=== PATIENT | female | born 1965 | race Two or more races ===

== ENCOUNTER 2022-04-24 11:01 | Emergency (ER) | payer OTHER ==
[~2022-04-24] VITALS: Ht 160 cm; Wt 95.3 kg
[2022-04-24] MEDS ORDERED: MONTELUKAST SOD10 MG PO (11:34)
[2022-04-24] MEDS ORDERED: LOSARTAN POTAS100 MG PO (11:34)
[2022-04-24] MEDS ORDERED: VALSARTAN320 MG PO (11:34)
[2022-04-24] MEDS ORDERED: ATORVASTATIN CA20 MG PO (11:34)
[2022-04-24] MEDS ORDERED: BUPROPION HCL150 M1 PO (11:34)
[2022-04-24] MEDS ORDERED: METFORMIN HCL500 M4 PO (11:34)
[2022-04-24] MEDS ORDERED: TRIUMEQ TABLET1 EACH PO (11:34)
[2022-04-24] MEDS ORDERED: KETO10TA2 PO (14:52)
== END 2022-04-24 17:06 | disposition home or self-care (01) ==
LOC: ER 11:01
DX: S93.402A Sprain of unspecified ligament of left ankle, initial encounter (principal); X50.1XXA Overexertion from prolonged static or awkward postures, initial encounter; Y93.9 Activity, unspecified; Y92.018 Other place in single-family (private) house as the place of occurrence of the external cause; Y99.9 Unspecified external cause status; I10 Essential (primary) hypertension; E11.9 Type 2 diabetes mellitus without complications; Z79.84 Long term (current) use of oral hypoglycemic drugs